=== PATIENT | male | born 1995 | race Caucasian/White ===

== ENCOUNTER 2025-03-29 16:18 | Emergency (ER) | payer BC, SELFPAY ==
--- NOTE | 2025-03-29 16:15 | RT.EKG_ITS ---
APPROVED REPORT Exam: Resting ECG Reason for Exam: dizziness Patient Location: E HR:71 bpm ECG Measurements Heart Rate 71 AXIS NV 180 P 40 QRSd 88 QRS 51 QT 392 T 40 QTc 427 Conclusion Sinus rhythm...normal P axis, V-rate 60- 99 ST elev, probable normal early repol pattern...ST elevation, age<55 Normal [place]/Interval
--- NOTE | 2025-03-29 16:15 | DI.CT_ITS ---
Exam(s) CT HEAD WO EXAM: CT HEAD WO CLINICAL HISTORY: syncope/head injury. TECHNIQUE: Imaging Protocol: Axial computed tomography images with coronal and sagittal reformatted images were created and reviewed COMPARISON: No exams were available for comparison FINDINGS: Ventricles and Extra axial spaces: Normal in size and morphology for the patient's age. Hemorrhage: None. Cerebral parenchyma: Normal. Midline shift: None. Brainstem/Cerebellum: Normal. Calvarium: Normal. Visualized Paranasal sinuses/Mastoids: Clear. Soft Tissues: Unremarkable. IMPRESSION: No acute intracranial process. RADIATION DOSE DELIVERED: 949.87mGy.cm Total DLP DATA REPOSITORY: All CT scans at this facility are submitted to the National Radiology Data Registry (NRDR) Dose Index Registry (DIR) with the [employer] (A[employer]). RADIATION OPTIMIZATION: All CT scans at this facility use at least one of these dose optimization techniques: automated exposure control; mA and/or kV adjustment per patient size (includes targeted exams where dose is matched to clinical indication); or iterative reconstruction.
--- NOTE | 2025-03-29 16:22 | W.ED.GENAD ---
Discharge Plan Disposition Patient Disposition: Home Condition: Good Discharge Details Clinical Impression: Vasovagal syncope, Closed head injury, Concussion Primary Care Provider: Gerson Corona ED Provider: Peterson Gabriel [place] Meds and New Rx's Prescriptions: New prochlorperazine maleate [Compazine] 10 mg tablet 10 mg PO Q8H PRN (Reason: N/V, headache) Qty: 20 0RF ibuprofen 600 mg tablet 600 mg PO Q8H PRNQty: 20 0RF Discontinued ibuprofen 800 mg tablet 800 mg PO Q8H PRN (Reason: pain) Qty: 30 0RF Discharge Instructions Instructions: Concussion, Adult ED, Fainting, Adult ED Additional Instructions: You were seen for a fainting event likely related to the vasovagal response as we discussed. You sustained a head injury with the event and likely have resulting concussion given the headache, N/V. Strongly encouraged to rest over the weekend. Alternate acetaminophen with ibuprofen every 4 hours for pain/headache. May use prochlorperazine for N/V. You should follow up with PCP early next week if your headache, fogginess, nausea is not improving. Return to ED for severe worsening headache, persistent vomiting, mental status or neurological change, chest pain, shortness of breath. Referrals: Gerson Corona, [employer] [Primary Care Provider, Medicine] HPI General Mode of arrival: wheelchair. Date/Time Provider Initiated Documentation: 03/29/25 16:22. Limitations to Documentation: no limitations. Information obtained by: patient, family and RN notes reviewed. HPI Narrative: Patient presents to ED after a syncopal event at home with resulting head injury. Patient reports coming home from work and not feeling well. Went to the bathroom to have a bowel movement but was unsuccessful. Continued to have rectal pressure and attempted to have another bowel movement also not overly successful. Went out to lie on the couch but was feeling lightheaded and sweaty as well as having abdominal discomfort not necessarily pain. He then went outside where he felt even more lightheaded, told his he felt like he was going to pass out and then did so falling over backwards striking the back of his head. He was unconscious for short period of time. He was confused when he came to. Was brought to ED by his and is still pale. Complains of pain to the back of his head. His confusion has resolved. He is no longer having abdominal pain or discomfort. Denies any recent illnesses. He is otherwise healthy. He has fainted at the site of his blood in the past probably 2-3 times. Denies any type of chest pain or shortness of breath. Denies any neck or back pain at this time. Related Data Home Medications ?Medication ?Instructions ?Recorded ?Confirmed ibuprofen 600 mg tablet 600 mg PO Q8H PRN #20 tabs 03/29/25 prochlorperazine maleate 10 mg 10 mg PO Q8H PRN N/V, headache #20 03/29/25 tablet (Compazine) tabs Previous Rx's ?Medication ?Instructions ?Recorded ibuprofen 600 mg tablet 600 mg PO Q8H PRN #20 tabs 03/29/25 prochlorperazine maleate 10 mg 10 mg PO Q8H PRN N/V, headache #20 03/29/25 tablet (Compazine) tabs Allergies Allergy/AdvReac Type Severity Reaction Status Date / Time No Known Allergies Allergy Unverified 03/29/25 16:27 Exam Narrative Exam Narrative: Const: WDWN male in NAD, still a little pale. VS per triage. HEENT: NC/AT. Normal facial exam. Neck: Supple. Trachea midline. No posterior cervical spine tenderness. Lungs: Normal respiratory effort. Lungs are clear. Cor: RRR without murmur. Good radial pulses. GI: Soft/ND/NT. Neuro: A+O x 3. Normal speech, mentation, gait. Cranial nerves II - XII grossly intact. No gross motor or sensory deficit. Ext: No C/C/E. Medical Decision Making Patient presents to ED with syncopal event that is likely vasovagal related to GI symptoms prior to the event. Subsequently struck his head had a fall loss of consciousness and some confusion afterwards. No seizure activity witnessed. Complains of pain in the back of his head only at this time. GI type symptoms have completely resolved. At no time did he have chest pain or shortness of breath. His EKG obtained on arrival shows sinus rhythm at 71 with normal axis and intervals. He has some early repolarization but no acute ST changes. Fingerstick blood sugars 113. Will plan IV, labs, CT head cardiac monitoring while here. Patient had episode of vomiting and CT scan. Zofran was given. CT head per radiology is negative for any acute intracranial findings. Patient's laboratory studies are unremarkable. Does have improvement of his headache but still fair amount of posterior pain and is given IV ketorolac. I do feel that his syncopal event was vagal in nature and does not require further workup given his previous history of syncope as well as the presentation of this event. I do believe headache, vomiting, initial confusion is likely related to concussion and closed head injury. Recommend rest over the weekend with very little activity. Alternate acetaminophen with ibuprofen to help with the headache. Prochlorperazine for recurrent nausea/vomiting. This may also help with the headaches. Follow-up with primary care next week if not improving. Return precautions provided. Lab Data Lab results reviewed: Yes I reviewed the patient's lab results. 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 Father No problems noted. Maternal Grandfather , in his 80s Diabetes Sister No problems noted. Paternal Grandfather No problems noted. Maternal Grandmother No problems noted. Paternal Grandmother No problems noted. Social History Smoking/Tobacco Use Status: Never Second Hand Exposure: Yes Smoking risk assessment performed?: Yes Alcohol Intake: current Alcohol Intake frequency: a few times a month Alcohol type: beer Drug use: Never Substance use type: does not use Adopted: No Caregiver/Support person: No Household members: significant other and children Housing: house Number of Children: 1 Communication Needs: None Education Level: college Details: Bachelor's in Construction Mgmt Do you need help understanding health information?: Never current occupation: Self Employed-construction Pets and animals: Yes Pets and animals: cat(s) and dog(s) Sexually active: Yes Do you think of yourself as: straight/heterosexual Current gender identity: male What is your relationship status?: living with partner How often do you talk on the phone with friends or family?: three or more times per week How often do you get together with friends or relatives?: once per week How often do you attend shinto or roman catholic services?: decline to answer Do you belong to any clubs or organized social groups?: yes Panel score (0-1 are the most socially isolated patients): 3 What type of physical activity do you participate in: regular exercise Duration: > 90 minutes/day Frequency: 5-6 times per week Special ryanne needs: No Agree to transfusion: Yes Seatbelt use: sometimes Helmet use: Yes Helmet use: always Drive intox or ride w/intox [employer] truck driver: No Working smoke detector in home: Yes Carbon monox detector in home: Yes Firearms in home: Yes Firearms unloaded and locked: Yes Do you feel safe at home: Yes Do you feel safe in your relationship?: Yes Victim of physical abuse: No Victim of emotional abuse: No Victim of sexual abuse: No Would you like helpful sources: No
[2025-03-29 16:25] VITALS: BP 133/89; PULSE 72; RESP 18; TEMP 36.4; O2SAT 100
[2025-03-29 16:27] VITALS: BP 133/89; PULSE 72; RESP 18; TEMP 36.4; O2SAT 100
[2025-03-29 16:40] LABS: Abs Immature Grans 0.03 10^3/uL (0.0-0.06); HCT 44.5 % (40.0-50.0); HGB 15.1 g/dL (13.5-17.5); Immature Grans % 0.4 %; MCH 28.7 pg (27.0-33.0); MCHC 33.9 % (32.0-36.0); MCV 84 fL (80-95); MPV 10.5 fL (8.0-11.0); Platelet Count 207 10^3/uL (130-400); RBC 5.27 10^6/uL (4.36-5.78); RDW 11.8 % (11.8-14.1); RDW-SD 35.8 fL; WBC 8.13 10^3/uL (4.4-10.8)
[2025-03-29 16:58] LABS: ALT 42 U/L (16-63); AST 22 U/L (15-37); Albumin 4.2 g/dL (3.4-5.0); Alkaline Phosphatase 94 U/L (46-116); Anion Gap 11.6 mmol/L (3-11); BUN 12 mg/dL (7-18); Bilirubin, Total 0.6 mg/dL (0.2-1.0); CO2 24.4 mmol/L (21.0-32.0); Calcium 8.5 mg/dL (8.5-10.1); Chloride 102 mmol/L (98-107); Estimated GFR 92.61 (mL/min/1.73m2); Glucose 121 mg/dL (74-106); Magnesium 1.8 mg/dL (1.8-2.4); Potassium 3.6 mmol/L (3.5-5.1); Sodium 138 mmol/L (136-145); Total Protein 7.7 g/dL (6.4-8.2)
[2025-03-29] MEDS: Ondansetron 4 MG/2 ML VIAL IVP (16:59)
[2025-03-29] MEDS: ACETAMINOPHEN 1,000 MG/100 ML BAG 400 MG IVPB (17:07)
[2025-03-29 18:00] VITALS: PULSE 61; PULSE 62; RESP 13; O2SAT 100
[2025-03-29 18:10] VITALS: PULSE 62; RESP 10; O2SAT 100
[2025-03-29] MEDS: Ketorolac 15 MG/ML VIAL IVP (18:53)
== END 2025-03-29 19:17 | disposition home or self-care (01) ==
PROVIDERS: Emergency Provider Emergency Medicine; PCP Nurse Practitioner Family
DX: S06.0XAA Concussion with loss of consciousness status unknown, initial encounter (principal); S09.8XXA Other specified injuries of head, initial encounter; R55 Syncope and collapse; W19.XXXA Unspecified fall, initial encounter
CPT/HCPCS: 36415; 36416; 80053; 82962; 93005; 96365; 96366; 96375; 99284; 70450; 83735; 85025; 93010; J0131; J1885; J2405